=== PATIENT | female | born 1975 | race Caucasian/White ===

== ENCOUNTER 2018-04-10 05:54 | Emergency (ER) | payer OTHER, MEDICAID ==
[~2018-04-10] VITALS: Ht 162.6 cm; Wt 86.2 kg
[2018-04-10 06:00] VITALS: Ht 162.6 cm; Wt 86.2 kg
[2018-04-10 07:24] LABS: CALCIUM 8.8 mg/dL (8.5-10.1); CARBON DIOXIDE 27.9 mmol/L (21-32); CHLORIDE SERUM 104 mmol/L (98-107); CREATININE SERUM 0.7 mg/dL (0.6-1.0); GFR1 > 60 mL/min; GLUCOSE SERUM 90 mg/dL (74-106); POTASSIUM SERUM 3.8 mmol/L (3.5-5.1); SODIUM SERUM 140 mmol/L (136-145)
[2018-04-10 07:25] LABS: BASOPHIL % 0.5 % (0-2); PLATELET COUNT 268 x10^3mcL (130-400); RED CELL DISTRIBUTION WIDTH 12.9 % (11.5-14.5)
[2018-04-10 07:29] LABS: ALBUMIN 3.6 g/dL (3.4-5.0); ALKALINE PHOSPHATASE 52 U/L (46-116); ALT/SGPT 20 U/L (14-59); AST/SGOT 11 U/L (15-37); CHOLESTEROL 155 mg/dL (<200); HDL CHOLESTEROL 41 mg/dL (40-60); TOTAL PROTEIN, SERUM 6.8 g/dL (6.4-8.2)
[2018-04-10 08:40] LABS: AMPHETAMINE QUAL UR NONE DETECTED (See below)
[2018-04-10 09:43] VITALS: BP 123/73
== END 2018-04-10 09:43 | disposition home or self-care (01) ==
LOC: ED 05:54
PROVIDERS: Emergency Medicine
DX: R42 Dizziness and giddiness (principal); R11.2 Nausea with vomiting, unspecified; Z88.1 Allergy status to other antibiotic agents
CPT/HCPCS: 83880; J2405; J7030; J8597; Q0092